=== PATIENT | male | born 1965 | race Two or more races ===

== ENCOUNTER 2017-10-23 10:20 | Emergency (ER) | payer MEDICAID ==
[~2017-10-23] VITALS: Ht 175.3 cm; Wt 74.8 kg
[2017-10-23 11:49] LABS: Basophils # (auto) 0 uL; Basophils % (auto) 0.4 % (0.0-2.0); Eosinophils # (auto) 0 uL; Eosinophils % (auto) 0.4 % (0.0-7.0); Hematocrit 46.4 % (41.0-53.0); Hemoglobin 15.4 g/dL (13.5-17.5); Lymphocytes # (auto) 2.2 uL; Lymphocytes % (auto) 20.6 % (10.0-50.0); Mean Corpuscular Hemoglobin 30.4 pg (28.0-32.0); Mean Corpuscular Hgb Conc. 33.3 g/dL (32.0-36.0); Mean Corpuscular Volume 91.3 fL (80.0-100.0); Monocytes # (auto) 0.9 uL; Neutrophils # (auto) 7.5 uL; Neutrophils % (auto) 70.6 % (37.0-80.0); Platelet Count (auto) 312 10^3/uL (140-450); Red Blood Cells 5.08 10^6/uL (4.5-5.90); White Blood Cell 10.7 10^3/uL (4.4-10.8)
[2017-10-23 12:09] LABS: Albumin 4.3 g/dL (3.4-5.0); BUN/Creatinine Ratio 14.8; Bilirubin, Total 0.8 mg/dL (0.2-1.0); Potassium 3.5 mmol/L (3.5-5.1); Total Protein 8.4 g/dL (6.4-8.2)
[2017-10-23 15:02] VITALS: BP 116/93
== END 2017-10-23 18:49 | disposition left against medical advice (07) ==
LOC: ER 10:20
DX: F10.10 Alcohol abuse, uncomplicated (principal); Z53.21 Procedure and treatment not carried out due to patient leaving prior to being seen by health care provider
CPT/HCPCS: 36415; 71020; 80053; 85025; 93005

== ENCOUNTER 2019-01-05 16:43 | Emergency (ER) | payer MEDICAID ==
[~2019-01-05] VITALS: Ht 167.6 cm; Wt 77.1 kg
[2019-01-05 18:27] VITALS: BP 157/96
[2019-01-05] MEDS ORDERED: ONDANSETRON ODT 4 MG TAB PO ONE (19:00)
[2019-01-05] MEDS ORDERED: BACLOFEN 10 MG TAB PO ONE (19:00)
[2019-01-05] MEDS ORDERED: MEPERIDINE HCL (50 MG/ML) 1 ML VIAL IM ONE (19:00)
[2019-01-05] MEDS ORDERED: TRIAMCINOLONE 40MG/ML 1ML VIAL IM ONE (19:00)
[2019-01-05] MEDS ORDERED: LIDOCAINE W/ EPINEPHRINE 2% INJ 20ML VIAL ONE ×2 (19:40→19:43)
[2019-01-05] MEDS ORDERED: LIDOCAINE W/ EPINEPHRINE 2% INJ 20ML VIAL IJ ONE (20:00)
== END 2019-01-05 19:54 | disposition home or self-care (01) ==
LOC: ER 16:45
DX: M54.42 Lumbago with sciatica, left side (principal)
CPT/HCPCS: 20552; 72100; 96372; 99284; J2175; J3301; Q0162

== ENCOUNTER 2023-07-13 14:51 | Emergency (ER) | payer MEDICAID, OTHER ==
[~2023-07-13] VITALS: Ht 167.6 cm; Wt 66.3 kg
[2023-07-13 16:34] VITALS: BP 128/97; PULSE 99; RESP 18; TEMP 99.6; O2SAT 98
== END 2023-07-13 19:32 | disposition left against medical advice (07) ==
LOC: ER 14:51
DX: M54.2 Cervicalgia (principal); H53.149 Visual discomfort, unspecified; Z53.21 Procedure and treatment not carried out due to patient leaving prior to being seen by health care provider
CPT/HCPCS: 70450; 72125